=== PATIENT | female | born 1995 | race Two or more races ===

== ENCOUNTER 2023-12-02 00:05 | Emergency (ER) | payer MEDICAID, OTHER ==
[~2023-12-02] VITALS: Ht 170.2 cm; Wt 68.2 kg
[2023-12-02 00:19] VITALS: BP 108/58; PULSE 85; RESP 18; O2SAT 98
[2023-12-02 01:21] LABS: Basophils # (auto) 0 10 ^3/uL (0-0.2); Basophils % (auto) 0.3 % (0.0-2.0); Eosinophils # (auto) 0.1 10 ^3/uL (0-0.8); Eosinophils % (auto) 0.9 % (0.0-7.0); Hematocrit 35.3 % (36.0-46.0); Hemoglobin 11.8 g/dL (12.2-16.2); Lymphocytes # (auto) 1.4 10 ^3/uL (0.4-5.4); Lymphocytes % (auto) 11.3 % (10.0-50.0); Mean Corpuscular Hemoglobin 28.9 pg (28.0-32.0); Mean Corpuscular Hgb Conc. 33.4 g/dL (32.0-36.0); Mean Corpuscular Volume 86.4 fL (80.0-100.0); Monocytes # (auto) 0.4 10 ^3/uL (0-1.3); Monocytes % (auto) 3.5 % (0.0-12.0); Neutrophils # (auto) 10.1 10 ^3/uL (1.6-8.6); Red Blood Cells 4.08 10^6/uL (4.0-5.20); Red Cell Distribution Width 13.9 % (11.8-14.3)
[2023-12-02 01:32] LABS: Alanine Aminotransferase 11 U/L (7-40); Alkaline Phosphatase 69 U/L (46-116); Anion Gap 6 (5-15); Aspartate Aminotransferase 14 U/L (13-40); BUN/Creatinine Ratio 10.7 (10.0-20.0); Bilirubin, Total 0.2 mg/dL (0.2-1.0); Blood Urea Nitrogen 6 mg/dL (9-23); Calcium 9.6 mg/dL (8.7-10.4); Carbon Dioxide 25 mmol/L (20-30); Chloride 106 mmol/L (98-107); Glucose 95 mg/dL (74-106); Lipase 40 U/L (12-53); Potassium 3.9 mmol/L (3.5-5.1); Sodium 137 mmol/L (136-145)
== END 2023-12-02 05:03 | disposition left against medical advice (07) ==
LOC: ER 00:05 → EDBD 00:05 → ER 05:03
DX: O26.892 Other specified pregnancy related conditions, second trimester (principal); R10.2 Pelvic and perineal pain; Z3A.19 19 weeks gestation of pregnancy
CPT/HCPCS: 36415; 76805; 76817; 80053; 83690; 84702; 85025; 86900; 86901

== ENCOUNTER → 2024-03-14 | Outpatient (CLI) | payer MEDICAID ==
[2024-03-14 09:52] LABS: Basophils # (auto) 0 10 ^3/uL (0-0.2); Basophils % (auto) 0.4 % (0.0-2.0); Eosinophils # (auto) 0.1 10 ^3/uL (0-0.8); Eosinophils % (auto) 0.6 % (0.0-7.0); Hematocrit 32.3 % (36.0-46.0); Lymphocytes # (auto) 1.8 10 ^3/uL (0.4-5.4); Lymphocytes % (auto) 19.7 % (10.0-50.0); Mean Corpuscular Hemoglobin 28.9 pg (28.0-32.0); Mean Corpuscular Hgb Conc. 34.2 g/dL (32.0-36.0); Mean Corpuscular Volume 84.7 fL (80.0-100.0); Monocytes # (auto) 0.4 10 ^3/uL (0-1.3); Monocytes % (auto) 4.8 % (0.0-12.0); Neutrophils # (auto) 6.9 10 ^3/uL (1.6-8.6); Neutrophils % (auto) 74.5 % (37.0-80.0); Red Blood Cells 3.81 10^6/uL (4.0-5.20); Red Cell Distribution Width 14.7 % (11.8-14.3); White Blood Cell 9.3 10^3/uL (4.4-10.8)
== END | disposition home or self-care (01) ==
LOC: LAB 08:51
PROVIDERS: ATTEND Obstetrics & Gynecology
DX: Z34.80 Encounter for supervision of other normal pregnancy, unspecified trimester (principal); Z3A.00 Weeks of gestation of pregnancy not specified
CPT/HCPCS: 36415; 82951; 83036; 85025

== ENCOUNTER → 2024-04-04 | Outpatient (CLI) | payer MEDICAID ==
[2024-04-04 09:47] LABS: Basophils # (auto) 0 10 ^3/uL (0-0.2); Basophils % (auto) 0.3 % (0.0-2.0); Eosinophils # (auto) 0.1 10 ^3/uL (0-0.8); Eosinophils % (auto) 1.4 % (0.0-7.0); Hematocrit 32.6 % (36.0-46.0); Hemoglobin 10.9 g/dL (12.2-16.2); Lymphocytes # (auto) 1.7 10 ^3/uL (0.4-5.4); Lymphocytes % (auto) 20.5 % (10.0-50.0); Mean Corpuscular Hemoglobin 28.4 pg (28.0-32.0); Mean Corpuscular Hgb Conc. 33.4 g/dL (32.0-36.0); Mean Corpuscular Volume 85.3 fL (80.0-100.0); Monocytes # (auto) 0.4 10 ^3/uL (0-1.3); Neutrophils # (auto) 6.1 10 ^3/uL (1.6-8.6); Neutrophils % (auto) 72.8 % (37.0-80.0); Platelet Count (auto) 149 10^3/uL (140-450); Red Blood Cells 3.82 10^6/uL (4.0-5.20); Red Cell Distribution Width 14.9 % (11.8-14.3); White Blood Cell 8.4 10^3/uL (4.4-10.8)
[2024-04-05 12:07] LABS: RPR Non Reactive (Non Reactive)
[2024-04-05 22:06] LABS: Chlamydia Trachomatis, NAA Negative (Negative); Neisseria gonorrhoeae, NAA Negative (Negative)
== END | disposition home or self-care (01) ==
LOC: LAB 09:01
PROVIDERS: ATTEND Obstetrics & Gynecology
DX: Z11.3 Encounter for screening for infections with a predominantly sexual mode of transmission (principal); Z72.51 High risk heterosexual behavior
CPT/HCPCS: 36415; 85025; 86592

== ENCOUNTER 2024-04-11 04:42 | Observation (INO) | payer MEDICAID ==
[~2024-04-11] VITALS: Ht 167.6 cm; Wt 76.2 kg
[2024-04-11 06:08] LABS: Fern Testing Negative
[2024-04-12] MEDS ORDERED: PREN-96 PO (10:00)
== END 2024-04-11 07:44 | disposition home or self-care (01) ==
LOC: LDRP 04:42
PROVIDERS: ADMIT Obstetrics & Gynecology; ATTEND Obstetrics & Gynecology
DX: O42.913 Preterm premature rupture of membranes, unspecified as to length of time between rupture and onset of labor, third trimester (principal); Z3A.37 37 weeks gestation of pregnancy; Z79.899 Other long term (current) drug therapy
CPT/HCPCS: 59025; 76815; 81002; 84112; 94760; G0378; Q0114

== ENCOUNTER 2024-04-12 09:02 | Observation (INO) | payer MEDICAID ==
[2024-04-12] MEDS ORDERED: PREN-96 PO ×2 (10:00)
== END 2024-04-12 10:14 | disposition home or self-care (01) ==
LOC: UNDOADMOB 09:02 → LDRP 09:02 → UNDODISOB 10:14
PROVIDERS: ADMIT Obstetrics & Gynecology; ATTEND Obstetrics & Gynecology
DX: O42.913 Preterm premature rupture of membranes, unspecified as to length of time between rupture and onset of labor, third trimester (principal); Z3A.37 37 weeks gestation of pregnancy
CPT/HCPCS: 76818; G0378

== ENCOUNTER 2024-04-12 11:23 | Observation (INO) | payer MEDICAID ==
[~2024-04-12 11:23] MED LIST: PREN-96 PO
[2024-04-12 13:04] LABS: Fern Testing Negative
== END 2024-04-12 13:30 | disposition home or self-care (01) ==
LOC: LDRP 11:23 → UNDOADMOB 11:23 → LDRP 11:26 → UNDODISOB 13:30
PROVIDERS: ADMIT Obstetrics & Gynecology; ATTEND Obstetrics & Gynecology
DX: O62.9 Abnormality of forces of labor, unspecified (principal); Z3A.29 29 weeks gestation of pregnancy; Z79.899 Other long term (current) drug therapy
CPT/HCPCS: 59025; 81002; 84112; G0378; Q0114

== ENCOUNTER 2025-07-18 10:15 | Observation (INO) | payer MEDICAID ==
[~2025-07-18] VITALS: Ht 167.6 cm; Wt 77.1 kg
--- NOTE | 2025-07-18 11:37 | DVH ---
BIOPHYSICAL PROFILE HISTORY: IUGR TECHNIQUE: Multiple transabdominal real-time grayscale sonographic images through the gravid uterus of the fetus with duplex Doppler color flow and M-mode spectral analysis FINDINGS: BIOPHYSICAL PROFILE: breathing score: 2 movement score: 2 tone score: 2 Quantitative NATALIA score: 2 (NATALIA: 14.8 Cm.) Total score: 8 The cervix not well visualized. Single live fetus in cephalic presentation. heart rate 128 beats per minute. Grade 2 anterior placenta without previa or abruption IMPRESSION: Biophysical profile score: 8
--- NOTE | 2025-07-27 13:38 | DVHDS2 ---
Physician Discharge Progress N Final Diagnosis: iugr 37wks Operations or Procedures: Operations or Procedures nst reactive reviwed,sono Condition on Discharge: Good Disposition: Home Discharge Instructions: Diet: Regular Activity: Light activity Medications: na Follow Up Care: Specialist: 2d Discharge Statement: "Patient was advised to return to the ER or call 911 if any headaches, dizziness, shortness of breath, chest pain, abdominal pain, bleeding, fevers, or worsening of medical condition. Patient was counseled about treatment plan, medications, possible side effects, patientverbalized understanding. All questions were answered to the best of my ability. This discharge took greater then 30 minutes in planning, reviewing documentation, counseling the patient, and discussing with other team members." Visit Coding OBGYN Date of Service: Jul 18, 2025 Billing Provider: KINDRA ERAZO DO STEEL LAYER Common Visit Codes: 90709-[id number] OBS CARE (HIGH) STEEL LAYER Procedure Codes: 99655-75- NON-STRESS TEST KINDRA ERAZO DO Jul 27, 2025 13:38
== END 2025-07-18 11:59 | disposition home or self-care (01) ==
LOC: LDRP 10:15 → UNDOADMOB 10:15 → LDRP 10:26 → UNDODISOB 11:59
PROVIDERS: ADMIT Obstetrics & Gynecology; ATTEND Obstetrics & Gynecology
DX: O36.5930 Maternal care for other known or suspected poor fetal growth, third trimester, not applicable or unspecified (principal); Z3A.37 37 weeks gestation of pregnancy; Z98.890 Other specified postprocedural states
CPT/HCPCS: 59025; 76819; 81002; 94760; A4649; G0378

== ENCOUNTER 2025-07-21 03:43 | Observation (INO) | payer MEDICAID ==
--- NOTE | 2025-07-25 10:15 | DVH ---
BIOPHYSICAL PROFILE HISTORY: IUGR Comparison Study: US BIOPHYSICAL PROFILE on DOS: 07/18/25, US BIOPHYSICAL PROFILE on DOS: 04/12/24, US OBSTERICAL LIMITED on DOS: 04/11/24, US OB ULTRASOUND COMP GTR 14 WKS on DOS: 12/02/23 TECHNIQUE: Multiple real-time grayscale sonographic images through the gravid uterus of the fetus with duplex Doppler color flow and M-mode spectral analysis FINDINGS: BIOPHYSICAL PROFILE: breathing score: 2 movement score: 2 tone score: 2 Quantitative NATALIA score: 2 (NATALIA: 11.68 Cm.) Total score: 8 The cervix is not evaluated Single live fetus in cephalic presentation. heart rate 140.7 beats per minute. Grade 2, anterior placenta without previa or abruption IMPRESSION: Biophysical profile score: 8
--- NOTE | 2025-07-27 13:18 | DVHDS2 ---
Physician Discharge Progress N Final Diagnosis: iugr Operations or Procedures: Operations or Procedures nst reactive reviwedjro Condition on Discharge: Good Disposition: Home Discharge Instructions: Diet: Regular Activity: Light activity Medications: na Follow Up Care: Specialist: 3d Discharge Statement: "Patient was advised to return to the ER or call 911 if any headaches, dizziness, shortness of breath, chest pain, abdominal pain, bleeding, fevers, or worsening of medical condition. Patient was counseled about treatment plan, medications, possible side effects, patientverbalized understanding. All questions were answered to the best of my ability. This discharge took greater then 30 minutes in planning, reviewing documentation, counseling the patient, and discussing with other team members." Visit Coding OBGYN Date of Service: Jul 25, 2025 Billing Provider: KINDRA ERAZO DO CREATIVE SERVICES SPECIALIST Common Visit Codes: 99297-KRCISKF OBS CARE (HIGH) CREATIVE SERVICES SPECIALIST Procedure Codes: 77989-39- NON-STRESS TEST KINDRA ERAZO DO Jul 27, 2025 13:18
== END 2025-07-25 11:34 | disposition home or self-care (01) ==
LOC: LDRP 07-25 09:22 → UNDOADMOB 07-25 09:22 → LDRP 07-25 09:30
PROVIDERS: ADMIT Obstetrics & Gynecology; ATTEND Obstetrics & Gynecology
DX: O36.5930 Maternal care for other known or suspected poor fetal growth, third trimester, not applicable or unspecified (principal); Z3A.38 38 weeks gestation of pregnancy; Z98.890 Other specified postprocedural states
CPT/HCPCS: 59025; 76819; 81002; 94760; A4649; G0378

== ENCOUNTER 2025-07-29 06:44 | Observation (INO) | payer MEDICAID ==
--- NOTE | 2025-07-29 11:02 | DVH ---
BIOPHYSICAL PROFILE HISTORY: IUGR TECHNIQUE: Multiple transabdominal real-time grayscale sonographic images through the gravid uterus of the fetus with duplex Doppler color flow and M-mode spectral analysis FINDINGS: Biophysical score of 8/8. heart rate of 134 beats per minute. Cephalic position. NATALIA of 16.6 cm with MVP of 6.9 cm. Anterior placental location with grade 2. No placenta previa or abruptio. Possible nuchal cord seen. IMPRESSION: 1. Biophysical profile score: 8/8 2. Cephalic position. NATALIA of 16.6 cm with MVP of 6.9 cm. 3. No placenta previa or abruptio. 4. Possible nuchal cord seen.
--- NOTE | 2025-07-29 12:27 | DVHDS2 ---
Discharge Summary Date of Admission Jul 29, 2025 at 10:14 Date of Discharge: Jul 29, 2025 Admitting Diagnosis 38 weeks Wounds: none Brief Hx & Hospital Course: Patient with history IUGR here for NST BPP performed. Consults/Reason for consult none Operations or Procedures Biophysical profile profile NST performed. Condition at Discharge: Good Final Diagnosis/Problems List 38.4 Discharge Disposition: Home SNF Discharge Will this Physician continue t: No Discharge Instruct/Medications Diet: Regular Activity: No Restrictions, As Tolerated Scheduled Vit W/ Ferrous Fumara ( One Daily), 1 TAB PO DAILY, (Reported) Discharge Statement: "Patient was advised to return to the ER or call 911 if any headaches, dizziness, shortness of breath, chest pain, abdominal pain, bleeding, fevers, or worsening of medical condition. Patient was counseled about treatment plan, medications, possible side effects, patientverbalized understanding. All questions were answered to the best of my ability. This discharge took greater then 30 minutes in planning, reviewing documentation, counseling the patient, and discussing with other team members." ASSESSMENT ASSESSMENT Assessment Visit Coding OBGYN Date of Service: Jul 29, 2025 Billing Provider: FRANCISCA BAH DO ENAMELER Common Visit Codes: [id number] INP/OBS CARE(HIGH), 01299-TER/OBS SAME DATE (LOW), 67391-TGS/OBS SAME DATE (MOD) ENAMELER Procedure Codes: 44104-72- NON-STRESS TEST FRANCISCA BAH DO Jul 29, 2025 12:27
--- NOTE | 2025-07-29 16:01 | DVHDS2 ---
Discharge Summary Date of Admission Jul 29, 2025 at 10:14 Date of Discharge: Jul 29, 2025 Admitting Diagnosis Thirty-eight week IUGR here for NST BPP scheduled Wounds: None Labs/Diagnostic Data: None Brief Hx & Hospital Course: Patient with history IUGR here for NST BPP performed. Consults/Reason for consult None Operations or Procedures Biophysical profile profile NST performed. Condition at Discharge: Good Final Diagnosis/Problems List 38.4 Discharge Disposition: Home SNF Discharge Will this Physician continue t: No Discharge Instruct/Medications Diet: Regular Activity: No Restrictions, As Tolerated Activity comment: Kick counts labor precautions Follow Up/Referral: Scheduled continuous monitoring BPP Scheduled Vit W/ Ferrous Fumara ( One Daily), 1 TAB PO DAILY, (Reported) Discharge Statement: "Patient was advised to return to the ER or call 911 if any headaches, dizziness, shortness of breath, chest pain, abdominal pain, bleeding, fevers, or worsening of medical condition. Patient was counseled about treatment plan, medications, possible side effects, patientverbalized understanding. All questions were answered to the best of my ability. This discharge took greater then 30 minutes in planning, reviewing documentation, counseling the patient, and discussing with other team members." ASSESSMENT ASSESSMENT Hospital Course Patient with history IUGR here for NST BPP performed. Assessment 38.4 Visit Coding OBGYN Date of Service: Jul 29, 2025 TECHNICAL REP Common Visit Codes: 10210-SWL/OBS SAME DATE (HIGH), 85061-YJZ/OBS DISCH DAY <30MIN, 11485-JXW/OBS DISCH DAY >30MIN TECHNICAL REP Procedure Codes: 16483-50- NON-STRESS TEST FRANCISCA BAH DO Jul 29, 2025 16:01
== END 2025-07-29 11:16 | disposition home or self-care (01) ==
LOC: LDRP 10:14
PROVIDERS: ADMIT Obstetrics & Gynecology; ATTEND Obstetrics & Gynecology
DX: O36.5930 Maternal care for other known or suspected poor fetal growth, third trimester, not applicable or unspecified (principal); Z3A.38 38 weeks gestation of pregnancy; Z98.890 Other specified postprocedural states
CPT/HCPCS: 59025; 76819; 81002; 94760; A4649; G0378

== ENCOUNTER 2025-07-31 07:57 | Observation (INO) | payer MEDICAID ==
--- NOTE | 2025-07-31 10:08 | DVH ---
BIOPHYSICAL PROFILE HISTORY: IUGR Comparison Study: US BIOPHYSICAL PROFILE on DOS: 07/29/25, US BIOPHYSICAL PROFILE on DOS: 07/25/25, US BIOPHYSICAL PROFILE on DOS: 07/18/25, US BIOPHYSICAL PROFILE on DOS: 04/12/24 TECHNIQUE: Multiple real-time grayscale sonographic images through the gravid uterus of the fetus with duplex Doppler color flow and M-mode spectral analysis FINDINGS: BIOPHYSICAL PROFILE: breathing score: 2 movement score: 2 tone score: 2 Quantitative NATALIA score: 2 (NATALIA: 15.7 Cm.) Total score: 8 The cervix is not visualized Single live fetus in cephalic presentation. heart rate 125 beats per minute. Grade 2, anterior placenta without previa or abruption IMPRESSION: Biophysical profile score: 8 Possible nuchal cord x1.
[2025-07-31 11:41] LABS: Urine Protein, UAD 1+ (Negative)
--- NOTE | 2025-07-31 14:04 | DVHDS2 ---
Physician Discharge Progress N Final Diagnosis: testing for SGA Operations or Procedures: Operations or Procedures 30yo IUP@38.6wks VSS NST reactive per RN SVE by RN: 1.5/60/-2 urine c+s ordered FKC/preE/labor precautions reviewed Dr. Lizama consulted, agrees with POC. Laboratory Tests Test 07/31/25 10:39 Range/Units Urine Color Dark yellow Yellow Urine Clarity Ex.turbid Clear Urine pH 6.0 5.0-9.0 Urine Specific [place] 1.033 1.001-1.035 Urine Protein 1+ H Negative Urine Ketones Negative Negative Urine Blood Trace H Negative /uL Urine Nitrite Negative Negative Urine Bilirubin Negative Negative Urine Urobilinogen Normal Negative mg/dL Urine Leukocyte Esterase 3+ Negative /uL Urine RBC 65 0 - 4 /hpf Urine Microscopic WBC 41 H 0-5 /HPF Urine Squamous Epithelial Cells Mod <5 /hpf Urine Bacteria None seen None Seen /hpf Urine Mucus Few None Seen Urine Glucose Normal Normal mg/dL Other Interventions Other Interventions [place] [address] Ph: [phone] DIAGNOSTIC IMAGING Diagnostic Imaging Report : [id number] Signed PATIENT: LEONA MAHAN ACCT: [id number] UNIT: [id number] : 1995 LOC: [facility] ROOM / BED: TRIAGE1 / A AGE / SEX: 30 / F ADM STATUS: ADM IN SERVICE 9 ORDERING PHYSICIAN: RICHARD MCCOLLUM CNM PROCEDURE(s): BPP - BIOPHYSICAL PROFILE REASON: IUGR ORDER NUMBER(s): [id number], ACCESSION NUMBER(s): [id number] BIOPHYSICAL PROFILE HISTORY: IUGR Comparison Study: US BIOPHYSICAL PROFILE on DOS: 07/29/25, US BIOPHYSICAL PROF ILE on DOS: 07/25/25, US BIOPHYSICAL PROFILE on DOS: 07/18/25, US BIOPHYSICAL PROFILE on DOS: 04/12/24 TECHNIQUE: Multiple real-time grayscale sonographic images through the gravid uterus of the fetus with duplex Doppler color flow and M-mode spectral analysis FINDINGS: BIOPHYSICAL PROFILE: breathing score: 2 movement score: 2 tone score: 2 Quantitative NATALIA score: 2 (NATALIA: 15.7 Cm.) Total score: 8 The cervix is not visualized Single live fetus in cephalic presentation. heart rate 125 beats per minute. Grade 2, anterior placenta without previa or abruption IMPRESSION: Biophysical profile score: 8 Possible nuchal cord x1. ATED BY: PRASHANTH TODD MD DICTATED DATE/TIME: 07/31/25 100 SIGNED BY: PRASHANTH TODD MD SIGNED DATE/TIME: 07/31/25 1005 CC: Condition on Discharge: Stable Disposition: Home Discharge Instructions: Diet: Regular Activity: No Restrictions, As Tolerated Follow Up/Referral: [facility] at 8:00 am to review results of Urinalysis and Urine culture, NST/BPP. Medications: see med list Follow Up Care: Specialist: f/u in 3 days Discharge Statement: "Patient was advised to return to the ER or call 911 if any headaches, d izziness, shortness of breath, chest pain, abdominal pain, bleeding, fevers, or worsening of medical condition. Patient was counseled about treatment plan, medications, possible side effects, patientverbalized understanding. All questions were answered to the best of my ability. This discharge took greater then 30 minutes in planning, reviewing documentation, counseling the patient, and discussing with other team members." Visit Coding OBGYN Date of Service: Jul 31, 2025 Billing Provider: RICHARD MCCOLLUM CNM BROOD STATION MANAGER Common Visit Codes: 09975-[id number] OBS CARE (HIGH) BROOD STATION MANAGER Procedure Codes: 38708-69- NON-STRESS TEST RICHARD MCCOLLUM CNM Jul 31, 2025 14:04
== END 2025-07-31 12:02 | disposition home or self-care (01) ==
LOC: LDRP 09:26
PROVIDERS: ADMIT Obstetrics & Gynecology; ATTEND Obstetrics & Gynecology
DX: O36.5930 Maternal care for other known or suspected poor fetal growth, third trimester, not applicable or unspecified (principal); Z3A.38 38 weeks gestation of pregnancy; Z79.899 Other long term (current) drug therapy
CPT/HCPCS: 59025; 76819; 81001; 81002; 87086; 94760; A4649; G0378

== ENCOUNTER 2025-08-03 06:33 | Observation (INO) | payer MEDICAID ==
--- NOTE | 2025-08-03 11:05 | DVH ---
BIOPHYSICAL PROFILE HISTORY: IUGR Comparison Study: US BIOPHYSICAL PROFILE on DOS: 07/31/25, US BIOPHYSICAL PROFILE on DOS: 07/29/25, US BIOPHYSICAL PROFILE on DOS: 07/25/25, US BIOPHYSICAL PROFILE on DOS: 07/18/25, US BIOPHYSICAL PROFILE on DOS: 04/12/24 TECHNIQUE: Multiple real-time grayscale sonographic images through the gravid uterus of the fetus with duplex Doppler color flow and M-mode spectral analysis FINDINGS: BIOPHYSICAL PROFILE: breathing score: 2 movement score: 2 tone score: 2 Quantitative NATALIA score: 2 (NATALIA: 14.95 Cm.) Total score: 8 Single live fetus in cephalic presentation. heart rate 136.38 beats per minute. Anterior grade 2 placenta without previa or abruption IMPRESSION: Biophysical profile score: 8
--- NOTE | 2025-08-03 11:58 | DVHDS2 ---
Physician Discharge Progress N Final Diagnosis: iugr 39wks Operations or Procedures: Operations or Procedures nst reactive reviwed,sono Condition on Discharge: Good Disposition: Home Discharge Instructions: Diet: Regular Activity: Light activity Medications: na Follow Up Care: Specialist: kyle in 3d Discharge Statement: "Patient was advised to return to the ER or call 911 if any headaches, dizziness, shortness of breath, chest pain, abdominal pain, bleeding, fevers, or worsening of medical condition. Patient was counseled about treatment plan, medications, possible side effects, patientverbalized understanding. All questions were answered to the best of my ability. This discharge took greater then 30 minutes in planning, reviewing documentation, counseling the patient, and discussing with other team members." Visit Coding OBGYN Date of Service: Aug 03, 2025 Billing Provider: KINDRA ERAZO DO SALES SUPERINTENDENT Common Visit Codes: 43025-[id number] OBS CARE (HIGH) SALES SUPERINTENDENT Procedure Codes: 37401-65- NON-STRESS TEST KINDRA ERAZO DO Aug 03, 2025 11:58
== END 2025-08-03 11:48 | disposition home or self-care (01) ==
LOC: LDRP 09:40
PROVIDERS: ADMIT Obstetrics & Gynecology; ATTEND Obstetrics & Gynecology
DX: O36.5930 Maternal care for other known or suspected poor fetal growth, third trimester, not applicable or unspecified (principal); Z3A.39 39 weeks gestation of pregnancy; Z98.890 Other specified postprocedural states
CPT/HCPCS: 59025; 76819; 81002; 94760; A4649; G0378